=== PATIENT | male | born 1980 | race Caucasian/White ===

== ENCOUNTER → 2022-08-27 | Outpatient (CLI) | payer OTHER, SELFPAY | END | disposition home or self-care (01) | LOC: LABSPEC 15:10 | PROVIDERS: Visit Provider Otolaryngology Otolaryngology/Facial Plastic Surgery | DX: J32.8 Other chronic sinusitis (principal) | CPT/HCPCS: 87070; 87205 ==

== ENCOUNTER → 2023-05-28 | Outpatient (CLI) | payer OTHER, SELFPAY ==
--- NOTE | 2023-05-28 15:47 | MRI_ITS ---
EXAM: MR Spine Lumbar W/O Contrast HISTORY: low back pain,stiffness TECHNIQUE: MR Spine Lumbar W/O Contrast COMPARISON: XR lumbar spine May 19, 2023. LIMITATIONS: None. FINDINGS: No acute fracture. No disc bulge or significant stenosis at L1-2, L2-3 or L3-4. Facet arthrosis at L4-5 without significant disc bulge or foraminal/central canal stenosis. At L5-S1, there is disc narrowing with degenerative changes of the endplates as well as facet arthrosis. There is broad-based disc bulge at L5-S1 with mild bilateral neural foraminal narrowing and minimal central canal stenosis. MRI/Spine Lumbar (Routine) IMPRESSION: Disc bulge at L5-S1 with mild bilateral neural foraminal narrowing. Electronically Signed: Jose Ballard MD at 20:42 EDT ,
== END | disposition home or self-care (01) ==
PROVIDERS: Referring Provider Orthopaedic Surgery; Visit Provider Orthopaedic Surgery
DX: M51.27 Other intervertebral disc displacement, lumbosacral region (principal)
CPT/HCPCS: 72148

== ENCOUNTER 2023-07-22 16:30 | Outpatient (RCR) | payer OTHER, SELFPAY ==
--- NOTE | 2023-06-09 18:57 | HP.PTEVAL_ITS ---
Patient's Visit Information Visit Information Visit Information: GIN KRUEGER is a 42 year old M referred to Physical Therapy by Dr. Demian Cisneros DO with a diagnosis of LOW BACK PAIN ,INTERVERTEBRAL DISC DEGERATION ,LUMBOSCARAL. Date of Evaluation: 06/09/23 Physical Therapist: Dipak Ge, PT, Cert MDT, OCS Visit Plan Frequency: 2x /Week Duration: 4 Weeks Plan: PT INTERVENTIONS PETRA EX'S ,DLS ,POSTURAL EX'S ,MANUAL THERAPY AND MODLATIES PRN Subjective Subjective: This 42 y/o male presents to physical therapy with lumbar pain. Patient has had lumbar pain ~ 6 months .Initially stiffness and became more pain. No injury or mechanism of pain. Patient pain is center LS. Seen Dr. Cisneros had MRI DDD and bulging disc. Okay to try PT and possible injection. Aggravating factors bending , lifting heavy, AM is worse . Alleviating factors standing ,walking and sitting is okay. No medication. Denies paresthesia/tingling-.Bowel/bladder-.Coughing/sneezing + sharp/stabbing. Pain affects sleeping . Patient has no h/o with trauma or injury. Patient pain affects QOL and function. Patient goals to have no pain. SOCIAL: single VOCATION: [employer] Pain Bilateral Back: Pain Intensity (Out of 10): 4 Pain Intensity Range: 10 Objective Objective: POSTURE: reduce lordosis in sitting position PALAPTION: tender LS/SI NEURO: denies paresthesia/tingling ,reflexes L3-4,L4-5,L5-S1 1/3 MMT: quads/hams 5/5 ,hip flexion 4/5 ,ankle 5/5 FLEXABLITY: hamstrings MIN tight LUMBAR ROM: flexion min loss ,extension mod loss ,side glides min loss Special Tests L/S Slump test left side: Negative L/S Slump test right side: Negative L/S Left Straight Leg Raise: Negative L/S Right Straight Leg Raise: Positive Lumbar Standing: Flexion - Mechanical Response: No effect Lumbar Standing: Flexion - Symptoms During Testing: No effect Lumbar Standing: Extension - Mechanical Response: No effect Lumbar Standing: Extension - Symptoms During Testing: Increases Lumbar Standing: Extension - Symptoms After Testing: No worse Lumbar Standing: Right Side Glides - Mechanical Response: No effect Lumbar Standing: Right Side [place] - Symptoms During Testing: Increases Lumbar Standing: Right Side [place] - Symptoms After Testing: No worse Lumbar Standing: Left Side [place] - Mechanical Response: No effect Lumbar Standing: Left Side [place] - Symptoms During Testing: No effect Lumbar Standing: Left Side [place] - Symptoms After Testing: No effect Lumbar Lying: Flexion - Mechanical Response: No effect Lumbar Lying: Flexion - Symptoms During Testing: No effect Lumbar Lying: Flexion - Symptoms After Testing: No effect Lumbar Lying: Extension - Mechanical Response: Increases motion Lumbar Lying: Extension - Symptoms During Testing: Decreases Lumbar Lying: Extension - Symptoms After Testing: Better Comments:: with less stiffness Balance/Special Test Scores Oswestry Low Back Score: 20 Goals Goal 1:: Patient to be I with HEP Goal Time Frame: 4-6 Weeks Goal 2:: Patient to improve posture/body mechanics for ADLS Goal Time Frame: 4-6 Weeks Goal 3:: Patient to improve lumbar ROM for function of recovery for job demands Goal Time Frame: 4-6 Weeks Goal 4:: Patient to demonstrate 50% improvement with improved function and less pain Goal Time Frame: 4-6 Weeks Goal 5:: Patient to improve back oswestry score by 5 points to improve QOL and function Goal Time Frame: 4-6 Weeks Rehabilitation Potential Physical Therapy Diagnosis: This patient has lumbar pain with central disc with derangement worse with bending ,lifting ,AM stiffness better on move MRI showed bulging disc and DDD better with extension with mechanical response with improved motion thus will benefit from skilled PT Rehabilitation Potential: Good Anticipated Interventions Patient/Client Instruction: Educate patient on: Condition and Plan of Care For the Purpose of:: To decrease pain, To increase ROM, To improve muscle performance and motor function, To improve ability to perform ADL's, To increase tolerance to activity/condition/position, To improve ability of physical actions for home/community/work/leisure, To improve health of tissue, To decrease soft tissue restriction, To increase flexibility/ROM and To prevent re-injury Therapeutic Exercise to Include: Strength training, Balance training, Body mechanics, Postural training, Flexibilty training, Dynamic Lumbar Stabilization and Petra Exercises For the Purpose of:: To decrease pain, To increase ROM, To improve muscle performance and motor function, To improve ability to perform ADL's, To increase tolerance to activity/condition/position, To improve ability of physical actions for home/community/work/leisure, To improve health of tissue, To decrease soft tissue restriction and To increase flexibility/ROM Manual Therapy Techniques to Include: Mobilization For the Purpose of:: To decrease pain, To increase ROM, To improve nutrient delivery to tissue, To increase oxygenation perfusion, To improve health of tissue, To decrease soft tissue restriction and To increase flexibility/ROM TENS: Yes IF ES: Yes Cryotherapy (ice pack, ice massage): Yes Thermo therapy (hot pack): Yes Ultrasound (thermal/non thermal): Yes For the Purpose of:: To decrease pain, To increase ROM, To improve nutrient delivery to tissue, To increase oxygenation perfusion, To improve muscle performance and motor function, To improve health of tissue, To decrease soft tissue restriction and To increase flexibility/ROM Text: Thank you for the opportunity to evaluate your patient. For Medicare and Medicare HMO plans, please review the plan of care and approve it. It will need to be FAXED BACK to us at [phone] for Medicare purposes. For Medicare only, by signing this I certify the plan of care. Please let me know if there are questions or concerns regarding this plan of care. Physician Signature: Date:
--- NOTE | 2023-11-17 17:12 | HP.PT.NRP ---
Patient Information Patient Information: GIN KRUEGER was seen in my office for initial evaluation on 06/09/23. The following Plan of Care was established for this patient: POC Established Initial Frequency: 2x /Week Initial Duration: 4 Weeks Anticipated Interventions Patient/Client Instruction: Educate patient on: Condition and Plan of Care For the Purpose of:: To decrease pain, To increase ROM, To improve muscle performance and motor function, To improve ability to perform ADL's, To increase tolerance to activity/condition/position, To improve ability of physical actions for home/community/work/leisure, To improve health of tissue, To decrease soft tissue restriction, To increase flexibility/ROM and To prevent re-injury Therapeutic Exercise to Include: Strength training, Balance training, Body mechanics, Postural training, Flexibilty training, Dynamic Lumbar Stabilization and Paul Exercises For the Purpose of:: To decrease pain, To increase ROM, To improve muscle performance and motor function, To improve ability to perform ADL's, To increase tolerance to activity/condition/position, To improve ability of physical actions for home/community/work/leisure, To improve health of tissue, To decrease soft tissue restriction and To increase flexibility/ROM Manual Therapy Techniques to Include: Mobilization For the Purpose of:: To decrease pain, To increase ROM, To improve nutrient delivery to tissue, To increase oxygenation perfusion, To improve health of tissue, To decrease soft tissue restriction and To increase flexibility/ROM TENS: Yes IF ES: Yes Cryotherapy (ice pack, ice massage): Yes Thermo therapy (hot pack): Yes Ultrasound (thermal/non thermal): Yes For the Purpose of:: To decrease pain, To increase ROM, To improve nutrient delivery to tissue, To increase oxygenation perfusion, To improve muscle performance and motor function, To improve health of tissue, To decrease soft tissue restriction and To increase flexibility/ROM Last Seen Last Seen: This patient was last seen in our office . Pertinent comments regarding their Physical therapy will appear below: Patient was seen for PT for lumbar pain with HEP ,paul ex's and DLS ,THUS is d/c At this point I will be discontinuing this patient from physical therapy. I would be happy to see this patient again in the future if found appropriate by the physician. Thank you! Dipak Ge, PT, Cert MDT, OCS Balance/Gait/Functional tests Balance/Special Test Scores Oswestry Low Back Score: 8
== END 2023-07-22 19:00 | disposition home or self-care (01) ==
LOC: PT 16:30
PROVIDERS: Referring Provider Orthopaedic Surgery; Visit Provider Orthopaedic Surgery
DX: M51.37 Other intervertebral disc degeneration, lumbosacral region (principal); M54.50 Low back pain, unspecified
CPT/HCPCS: 97110; 97162; 97530

== ENCOUNTER → 2024-02-17 | Outpatient (CLI) | payer OTHER, SELFPAY ==
[2024-02-17 12:17] LABS: Absolute Lymphocyte Count 1.57 X10^3/uL (0.83-4.51); Absolute Neutrophil Count 2.5 X10^3/uL (2.0-7.7); Basophil# 0.02 X10^3/uL; Basophil% 0.4 % (0-1); Eosinophil# 0.06 X10^3/uL; Eosinophils% 1.3 % (0-5); Hematocrit 48.6 % (40-54); Hemoglobin 15.6 g/dL (13.0-16.5); Lymphocyte # 1.57 X10^3/ul (0.83-4.51); Lymphocyte % 34.4 % (19-41); Mean Corp Hgb Conc 32.1 g/dL (32-36); Mean Corpuscular Hgb 29.1 pg (27.0-32.0); Mean Corpuscular Volume 90.5 fL (80-94); Mean Platelet Vol. 9.8 fl (6.2-12.0); Monocyte% 8.8 % (0-10); NRBC Flagged by Analyzer 0 % (0-5); Neutrophil % 54.7 % (47-70); Platelet Count 270 K/mm3 (150-450); RBC Distribution Width CV 12.3 % (11.6-14.6); RBC Distribution Width SD 40.7 fl (35.1-43.9); Red Blood Count 5.37 M/mm3 (4.6-6.2); White Blood Count 4.6 K/mm3 (4.4-11.0)
[2024-02-17 12:39] LABS: ALB/GLOB Ratio 1.2 RATIO (0.9-2.4); AST(SGOT) 17 U/L (15-37); Alanine Aminotransfer ALT/SGPT 35 U/L (16-61); Albumin, Serum 4.1 g/dL (3.2-5.0); Alkaline Phosphatase 72 U/L (45-117); Anion Gap 6 (5-15); BUN 15 mg/dL (7-18); BUN/Creat Ratio 15.7 RATIO (10-20); Calcium,Total 9.3 mg/dL (8.5-10.1); Chloride 103 mmol/L (98-107); Cholesterol 128 mg/dL (200); Creatinine, Serum 0.96 mg/dL (0.70-1.30); EST Glomerular Filtration Rate 92 mL/min (>60); Est Glom Filt Rate - Afr Amer 111 mL/min (>60); Ferritin 159 ng/mL (26-388); Globulin 3.3 g/dL (2.2-4.2); Glucose 86 mg/dL (74-106); High Density Lipoprotein 66 mg/dL; Iron 131 ug/dL (65-175); PSA,Total - Annual Screen 0.34 ng/mL (0.00-4.00); Potassium 4.3 mmol/L (3.5-5.1); Protein, Total 7.4 g/dL (6.4-8.2); Sodium Level 136 mmol/L (136-145); Triglycerides 38 mg/dL; Very Low Density Lipoprotein 8 mg/dL (5-40)
[2024-02-17 12:46] LABS: HIV - WCH Non-Reactive (Nonreactive); Syphilis Antibodies Non-reactive; Vitamin B12 401 pg/mL (211-911); Vitamin D,25 Hydroxy 52.9 ng/mL
== END | disposition home or self-care (01) ==
LOC: BFHLAB 09:17
PROVIDERS: PCP Nurse Practitioner Family; Referring Provider Nurse Practitioner Family; Visit Provider Nurse Practitioner Family
DX: Z00.01 Encounter for general adult medical examination with abnormal findings (principal); R53.83 Other fatigue; Z20.2 Contact with and (suspected) exposure to infections with a predominantly sexual mode of transmission; Z12.5 Encounter for screening for malignant neoplasm of prostate
CPT/HCPCS: 36415; 80053; 80061; 82306; 82607; 82728; 83540; 84153; 85025; 86703; 86780; 87491; 87591; G0103